=== PATIENT | female | born 1965 | race Caucasian/White ===

== ENCOUNTER 2024-02-15 14:01 | Emergency (ER) | payer OTHER, SELFPAY ==
[2024-02-15 14:06] VITALS: BP 134/84; PULSE 64; RESP 15; TEMP 37.1; O2SAT 100
[2024-02-15] MEDS: Ketorolac 10 MG TAB PO (14:29)
[2024-02-15] MEDS: Methocarbamol 500 MG TAB PO (14:29)
[2024-02-15] MEDS: oxyCODONE 5 MG TAB PO (14:29)
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
--- NOTE | 2024-02-15 15:05 | DI.RAD_ITS ---
Exam(s) XR SHOULDER RT COMPLETE 2+V EXAM: XR SHOULDER RT COMPLETE 2+V CLINICAL HISTORY: right shoulder injry. TECHNIQUE: 2D digital imaging was performed. COMPARISON: No exams were available for comparison FINDINGS: Four views: There is a comminuted displaced midshaft fracture of the clavicle and there is also a 2nd oblique fra cture in the lateral aspect of the clavicle which approaches the AC joint. There is no gross widenin g of the AC joint Humeral head and glenohumeral joint appear unremarkable. No fracture or dislocation. However, there is a small 4 x 3 millimeter calcific density in the soft tissues immediately adjacent to the greater tuberosity consistent with calcific rotator cuff tendinitis IMPRESSION: 1. Calcific rotator cuff tendinitis. 2. To 7 fracture sites in the right clavicle as described above. DATA REPOSITORY: RADIATION DOSE DELIVERED:
--- NOTE | 2024-02-15 15:05 | DI.RAD_ITS ---
Exam(s) XR CLAVICLE RT EXAM: XR CLAVICLE RT CLINICAL HISTORY: right shoulder pain. TECHNIQUE: 2D digital imaging was performed. COMPARISON: No exams were available for comparison FINDINGS: Two views. There are 2 separate fracture sites in the right clavicle. There is a comminuted overriding displaced midshaft fracture. There is also fracture at the lateral aspect of the clavicle adjacent to the AC joint. IMPRESSION: Two areas of separate acute fractures in the right clavicle as described above. Also incidentally noted is calcific rotator cuff tendinitis. DATA REPOSITORY: RADIATION DOSE DELIVERED:
--- NOTE | 2024-02-15 15:34 | DI.VRAD_ITS ---
PROCEDURE INFORMATION: Exam: XR Right Clavicle, Complete Exam date and time: 02/15/2024 2:57 PM Age: 58 years old Clinical indication: Pain; Shoulder and other: Clavicle; Right TECHNIQUE: Imaging protocol: Radiologic exam of the right clavicle. Complete exam. Views: Any number of views. COMPARISON: No relevant prior studies available. FINDINGS: Bones/joints: Transverse fracture through the mid clavicle with about 1 cm inferior displacement of the distal segment. There is a 2nd fracture of the distal clavicle which is minimally displaced. Sternal clavicular and acromioclavicular joints remain intact. Soft tissues: Soft tissue swelling. IMPRESSION: Segmental right clavicle fracture. Dictated and Authenticated by: Toby Manley MD. Ordering:ETHAN Patel MD
--- NOTE | 2024-02-15 15:35 | DI.VRAD_ITS ---
PROCEDURE INFORMATION: Exam: XR Right Shoulder Exam date and time: 02/15/2024 2:59 PM Age: 58 years old Clinical indication: Pain; Shoulder and other: Clavicle; Right TECHNIQUE: Imaging protocol: Radiologic exam of the right shoulder. Views: 2 or more views. COMPARISON: CR XR CLAVICLE RT 15/02/2024 14:57 FINDINGS: Bones/joints: Clavicle fracture has been separately reported. Sternoclavicular and acromioclavicular joints are intact. Scapula and humerus are normal. Soft tissues: There is soft tissue calcification adjacent to the greater humeral tuberosity which could suggest calcific tendinitis. IMPRESSION: Clavicle fracture. Dictated and Authenticated by: Toby Manley MD. Ordering:ETHAN Patel MD
--- NOTE | 2024-02-22 08:08 | NUR.NOTE ---
Accessed chart; [facility] received a facesheet but no equipment form. Patient did have a clavicle fx and a sling was dispensed. Nursing Note:
== END 2024-02-15 15:54 | disposition home or self-care (01) ==
LOC: ER 15:49
PROVIDERS: Emergency Provider Emergency Medicine
DX: M25.511 Pain in right shoulder (principal); S42.021A Displaced fracture of shaft of right clavicle, initial encounter for closed fracture; S42.031A Displaced fracture of lateral end of right clavicle, initial encounter for closed fracture; V18.0XXA Pedal cycle driver injured in noncollision transport accident in nontraffic accident, initial encounter; W17.89XA Other fall from one level to another, initial encounter
CPT/HCPCS: 99284; 73000; 73030; 99283